=== PATIENT | female | born 1970 | race Hispanic/Latino ===

== ENCOUNTER 2019-06-25 08:40 | Emergency (ER) | payer BC ==
[~2019-06-25] VITALS: Ht 160 cm; Wt 74.1 kg
[~2019-06-25 08:40] MED LIST: BACTROBAN OINT22 GM EXT; Z DIFLUCAN PO; Z SULFAMETHOXAZO PO; Z.0.MOTRIN800 MG PO
--- OUTSIDE RECORDS SUMMARY | 2019-06-25 08:43 | XMS REPORT | Summary of Care ---
Author Author Dean Sandhu Unknown Address [facility] Phone Unavailable Care Team Providers Care Inventory Checker Name Role Phone LUIS LINDSEY M.D. Unavailable Unavailable JANET MARTIN M.D., VIJAY Unavailable Unavailable LOYD Mccoy, STEPHANIE Unavailable Unavailable CARMEN PIRES, MARCIE WILEY Unavailable Unavailable Unavailable Unavailable Functional Status Name Dates Details Functional status health issues are not documented Status: Name Dates Details Cognitive status health issues are not documented Status: Problems Name Dates Details Limb pain (729.5, M79.609) Status: Active Patellar tendinitis of left knee (726.64, M76.52) Status: Active Posterior tibial tendonitis, left (726.72, M76.822) Status: Active Lumbar strain (847.2, S39.012A) Status: Active Back pain (724.5, M54.9) Status: Active Acute lumbar radiculopathy (724.4, M54.16) Status: Active Medications Name Dates Details Meloxicam 7.5 MG Oral Tablet TAKE 1 TABLET DAILY WITH FOOD. Quantity: 30 LUIS LINDSEY M.D. * Start : 24-May-2017 Active MethylPREDNISolone 4 MG Oral Tablet ONE TABLE TWICE DAILY * Quantity: 28 Refills: 0 LUIS LINDSEY M.D. * Start : 24-May-2017 Active Meloxicam 7.5 MG Oral Tablet TAKE 1 TABLET DAILY WITH FOOD. Days: 30; Qty: 30 X Tablet; Refill: 3 * Quantity: 30 Refills: 3 VIJAY VIZCAINO M.D. * Start : 18-Aug-2017 Active Methocarbamol 500 MG Oral Tablet TAKE 1 TABLET 3 TIMES DAILY. * Quantity: 30 Refills: 0 VIJAY VIZCAINO M.D. * Start : 18-Aug-2017 Active Ortho D 1-3775 MG-UNIT Oral Capsule TAKE 1-2 TABLETS DAILY * Quantity: 60 Refills: 5 VIJAY VIZCAINO M.D. * Start : 18-Aug-2017 Active Allergies and Adverse Reactions Name Dates Details Dilaudid TABS (Allergy) Status: Active Past Medical History Name Dates Details History of back pain (V13.59, Z87.39) Status: Resolved History of Hip pain (719.45, M25.559) Status: Resolved Procedures Procedure Dates Details MRI Spine lumbar wo contrast 87430 Date: 18-Oct-2017 History of breast reduction Completed History of hysterectomy Completed Immunization Name Dates Details Immunizations not documented Family History Name Dates Details Family history of diabetes mellitus (V18.0, Z83.3) Status: Active Family history of Heart trouble (429.9, I51.9) Status: Active Family history of liver disease (V18.59, Z83.79) Status: Active Family history of hypertension (V17.49, Z82.49) Status: Active Family history of cerebrovascular accident (CVA) (V17.1, Z82.3) Status: Active Social History Name Dates Details Unknown if ever smoked Vital Signs Date Test Result Details No Known Vitals to report Results Date Description Value Details [id number] Tobacco Use Screening Completed DONE Plan of Care Name Dates Details Planned Observations Planned Goals not documented Planned Encounters Appointment; STEPHANIE HARP M.D. On: 08-Dec-2017 10:30 Instructions Name Dates Details Instructions not documented Encounters Appointment; LUIS LINDSEY M.D. Encounter Diagnosis: Problem not documented On: 24-May-2017 15:00 Appointment; LUIS LINDSEY M.D. Encounter Diagnosis: Problem not documented On: 19-Jul-2017 14:15 Appointment; VIJAY VIZCAINO M.D. Encounter Diagnosis: Problem not documented On: 18-Aug-2017 9:15 Appointment; VIJAY VIZCAINO M.D. Encounter Diagnosis: Problem not documented On: 31-Aug-2017 10:30 Appointment; NORIS VOSS M.D. Encounter Diagnosis: Problem not documented On: 14-Sep-2017 8:30 Appointment; VIJAY VIZCAINO M.D. Encounter Diagnosis: Problem not documented On: 23-Sep-2017 8:30 Appointment; STEPHANIE HARP M.D. Encounter Diagnosis: Problem not documented On: 18-Oct-2017 10:30 Appointment; STEPHANIE HARP M.D. Encounter Diagnosis: Problem not documented On: 25-Oct-2017 9:30 Appointment; STEPHANIE HARP M.D. Encounter Diagnosis: Problem not documented On: 28-Oct-2017 8:00 Appointment; VIJAY VIZCAINO M.D. Encounter Diagnosis: Problem not documented On: 04-Nov-2017 8:30 Appointment; STEPHANIE HARP M.D. Encounter Diagnosis: Problem not documented On: 29-Nov-2017 11:00 Appointment; STEPHANIE HARP M.D. Encounter Diagnosis: Problem not documented On: 08-Dec-2017 10:30
[2019-06-25] MEDS ORDERED: ONDANSETRON HCL 4 MG ORAL DISINTEGRATING TAB PO ONE (09:00)
[2019-06-25] MEDS ORDERED: HYDROCODONE/APAP 5MG-325MG TAB PO ONE (09:00)
[2019-06-25] MEDS ORDERED: KETOROLAC TROMETHAMINE 30 MG/ML VIAL IM ONE (09:00)
[2019-06-25 12:46] VITALS: BP 116/75
== END 2019-06-25 10:19 | disposition home or self-care (01) ==
LOC: FSED 08:40
DX: J02.9 Acute pharyngitis, unspecified (principal); M06.9 Rheumatoid arthritis, unspecified; M35.00 Sjogren syndrome, unspecified
CPT/HCPCS: 83518; 96372; 99283; J1885; Q0162